=== PATIENT | female | born 1960 | race Caucasian/White ===

== ENCOUNTER → 2021-11-10 | Outpatient (CLI) | payer MEDICARE, MEDICAID, SELFPAY ==
--- NOTE | 2021-11-10 16:10 | MRI_ITS ---
STUDY: MRI LUMBAR SPINE WITH AND WITHOUT CONTRAST REASON FOR EXAM: Female, 61 years old. Multiple Sclerosis TECHNIQUE: Standardized fat and water weighted pulse sequences were obtained in the sagittal and axial planes. IV 17 CC DOTAREM was administered for the contrast portion of the examination. COMPARISON: None FINDINGS: T12-L1: Normal endplates. Normal disc height, hydration and morphology. Normal bilateral facet joints. Normal central canal and bilateral lateral recesses. Normal bilateral intervertebral neural foramina. Normal lumbar lordosis. There is no substantial scoliosis. Normal conus medullaris that terminates at the L1-2: Normal endplates. Normal disc height, hydration and morphology. Normal bilateral facet joints. Normal central canal and bilateral lateral recesses. Normal bilateral intervertebral neural foramina. L2-3: Normal endplates. Normal disc height, hydration and morphology. Normal bilateral facet joints. Normal central canal and bilateral lateral recesses. Normal bilateral intervertebral neural foramina. L3-4: Normal endplates. Normal disc height, hydration and morphology. Normal bilateral facet joints. Normal central canal and bilateral lateral recesses. Normal bilateral intervertebral neural foramina. L4-5: Normal endplates. Normal disc height, hydration and morphology. Normal bilateral facet joints. Normal central canal and bilateral lateral recesses. Normal bilateral intervertebral neural foramina. L5-S1: Normal endplates. Posterior midline annular tear. Normal bilateral facet joints. Normal central canal and bilateral lateral recesses. Normal bilateral intervertebral neural foramina. Normal visualized sacral ala. Normal visualized paraspinous soft tissue structures. MRI/Spine Lumbar W/WO Contrast IMPRESSION: Degenerative disc disease at L5-S1, otherwise normal enhanced and unenhanced MR examination of the lumbar spine. Electronically Signed: Ellie Estevez MD at 7:34 EDT ,
[2021-11-10 16:25] LABS: CREATININE FINGERSTICK 1.7 mg/dL (0.55-1.02)
--- NOTE | 2021-11-10 16:56 | MRI_ITS ---
STUDY: MRI BRAIN WITH AND WITHOUT CONTRAST REASON FOR EXAM: Female, 61 years old. Multiple Sclerosis TECHNIQUE: Standardized multiplanar fat and water weighted pulse sequences were obtained. IV 17CC DOTAREM was administered for the contrast portion of the examination. COMPARISON: None. FINDINGS: Normal size of the ventricles and extra-axial spaces for the patient''s age. Normal white matter tracts of the supratentorial brain. There are multiple small white matter increased T2 signal lesions are consistent with demyelinating plagues of the supratentorial brain. None of these lesions demonstrate abnormal enhancement after contrast administration. Normal bilateral basal ganglia. Normal thalami. There is no extra-axial fluid accumulation. Normal flow voids within the major intracranial circulation suggesting patency by spin echo criteria. Normal venous enhancement. There is no enhancing intra-axial or extra-axial abnormality. Normal sella turcica, pituitary gland, infundibular stalk, optic chiasm and hypothalamus. Normal tectal plate and pineal gland. Normal midbrain, katelynn and medulla. Normal cerebellum. Normal basal cisterns. Normal bilateral temporal bones. Normal bilateral internal auditory canals. No demonstrated orbital abnormality, within the constraints of a routine brain study. Normal visualized paranasal sinuses. Normal calvarium and skull base. Normal visualized soft tissue structures. Normal visualized upper cervical spine. MRI/Brain W/WO Contrast IMPRESSION: There are multiple small white matter increased T2 signal lesions are consistent with demyelinating plagues of the supratentorial brain. None of these lesions demonstrate abnormal enhancement after contrast administration. Electronically Signed: Ellie Estevez MD at 8:16 EDT ,
--- NOTE | 2021-11-10 17:39 | MRI_ITS ---
STUDY: MRI CERVICAL SPINE WITH AND WITHOUT CONTRAST REASON FOR EXAM: Female, 61 years old. Multiple Sclerosis TECHNIQUE: Standardized fat and water weighted pulse sequences were obtained in the sagittal and axial following administration of IV 17 CC DOTAREM. COMPARISON: None FINDINGS: Normal foramen magnum and brainstem-cervical cord junction. Normal craniovertebral junction. Normal anterior atlantoaxial articulation. Normal odontoid process. Normal cervical lordosis. Normal vertebral bodies and posterior osseous elements. C2-3: Normal endplates. Normal disc height, signal and morphology. Normal central canal and intervertebral neural foramina. C3-4: Normal endplates. Normal disc height, signal and morphology. Normal central canal and intervertebral neural foramina. C4-5, C5-6, C6-7: Endplate spondylosis. Central and paracentral disc bulge. Degenerative changes of the bilateral facet joints and uncovertebral joints. Moderate narrowing of the central canal and severe narrowing the bilateral intervertebral neural foramina. C7-T1: Normal endplates. Normal disc height, signal and morphology. Normal central canal and intervertebral neural foramina. Ill-defined high T2 signal lesions are noted in the cervical spine cord at C4-5, C6, C7 consistent with demyelinating lesions. None of these lesions show enhancement after contrast administration. Normal visualized soft tissue structures. MRI/Spine Cervical W/WO Contrast IMPRESSION: Multilevel degenerative changes, as described above. Ill-defined high T2 signal lesions are noted in the cervical spine cord at C4-5, C6, C7 consistent with demyelinating lesions. None of these lesions show enhancement after contrast administration. Electronically Signed: Ellie Estevez MD at 7:49 EDT ,
--- NOTE | 2021-11-10 18:19 | MRI_ITS ---
STUDY: MRI THORACIC SPINE WITH AND WITHOUT CONTRAST REASON FOR EXAM: Female, 61 years old. Multiple Sclerosis TECHNIQUE: IV 17Cc DOTAREM was administered for the contrast portion of the examination. COMPARISON: None. FINDINGS: Normal kyphosis of the thoracic spine. There is no substantial scoliosis. T1-2, T2-3, T3-4, T4-5, T5-6, T6-7, T7-8, T8-9, T9-10, T10-11, T11-12: Normal endplates. Normal disc hydration, heights and morphology of the corresponding intervertebral discs. Normal central canal and intervertebral neural foramina at the corresponding levels. Multiple high T2 signal lesions are seen in the upper and mid thoracic spine cord with ill-defined abnormal enhancement after contrast administration suggesting active demyelination. Normal conus medullaris that terminates at L1. The soft tissue structures are unremarkable. There is no enhancing abnormality. MRI/Spine Thoracic W/WO Contrast IMPRESSION: Multiple high T2 signal lesions are seen in the upper and mid thoracic spinal cord with ill-defined abnormal enhancement after contrast administration suggesting active demyelination. Electronically Signed: Ellie Estevez MD at 7:43 EDT ,
== END | disposition home or self-care (01) ==
LOC: MRI 15:21
PROVIDERS: Visit Provider Psychiatry & Neurology Neurology
DX: G35 Multiple sclerosis (principal)
CPT/HCPCS: 70553; 72156; 72157; 72158; A9575

== ENCOUNTER 2022-06-03 16:46 | Inpatient (IN) | payer MEDICARE, MEDICAID, SELFPAY ==
--- NOTE | 2022-06-03 16:52 | HP.PCM_ITS ---
HPI - General General Date of Admission: 06/03/22 Date of Service: 06/03/22 Chief Complaint: Nausea x 3 days. HPI Narrative The patient is a 61 y/o F w/ PMHx: Allergic rhinitis, Chronic anemia/AOCD/Fe deficiency anemia, Multiple sclerosis with near bedbound wheelchair status with chronic right foot drop and chronic neuropathic pain with chronic also ataxia following with Byron Flower previously in neurology, Mediastinal (Thymic) Large B-cell Lymphoma, Depression and Anxiety, GERD, Hypothyroidism, Hx Pelvic mass (aggressive large B cell lymphoma) w/ diagnostic laparoscopy followed by open loop transverse colostomy and loop ileostomy creation 2017 complicated by SBO requiring ex lap with REKHA, CKD stage IIIb (04/03/2022 BUN/creat 29/1.82) who presents to the [facility] ED on 06/03/22 with history of ongoing nausea x 3 days at the SNF with no associated emesis or abdominal pain and no fever or chills prompting SNF to transition to the ED for evaluation with upon initial ED arrival patient with initial BP noted 80/60 with pulse initially 125. Following ED evaluation and work-up with hydration vital signs notably improved. Additional work-up in the outside facility included: VS: BP 80/60-->96/70, HR 125-->102, 95-97% on RA, RR 16-18, T 97.7 CT A/P: atrophic left kidney with no evidence of hydronephrosis, (R kidney) ileostomy and colostomy appear appropriate, no bowel obstruction, evidence IVCF in place. Medications: 1L NS-> now on 2nd L, 4.45 mg IV Zosyn IV CMP with sodium 131, potassium 3.3, chloride 89, CO2 18.9, glucose 137, BUN/creatinine 44/5.38, AST/ALT 42/56, alk phos 147, calcium 11.1, total protein 11.5, albumin 5.5, T. bili 0.7, lipase 302, lactate 1.9, CBC with WBC 8.6, hemoglobin 17.1, MCV 92, platelet 419 without marked shift, urinalysis with cloudy appearing urine, pH 8, protein 100, glucose normal, ketone negative, bilirubin negative, blood 50, urobilinogen normal, specific gravity 1.015, nitrite negative, leukocyte Estrace 500 with greater than 50 urine WBCs, 0-5 urine RBCs with 4+ urine bacteria, UCx pending, Bld Cx x 2. [facility] feeling improved from her previous initial presentation to the outside facility ED. She notes that following fluids and medications she is currently not nauseated. Did discuss upfront that there was no immediate concerns for need for dialysis and she immediately noted that she had felt this was the case prior. 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 09/29/21 [History Last Taken Unknown] cyanocobalamin (vitamin B-12) 1,000 mcg capsule 1,000 mcg PO DAILY . 09/29/21 [History Last Taken Unknown] ferrous sulfate 325 mg (65 mg iron) tablet 325 mg PO DAILY . 09/29/21 [History Last Taken Unknown] fludrocortisone 0.1 mg tablet 0.1 mg PO DAILY . 09/29/21 [History Last Taken Unknown] folic acid 1 mg tablet 1 mg PO DAILY . 09/29/21 [History Last Taken Unknown] hydrocodone-acetaminophen 5-325mg 5mg-325mg 1 tab PO BID PRN . 09/29/21 [History Last Taken Unknown] levothyroxine 112 mcg capsule 112 mcg PO DAILY hypothyroidism 09/29/21 [History Last Taken Unknown] loperamide 2 mg capsule (Imodium A-D) 2 mg PO Q6H PRN . 09/29/21 [History Last Taken Unknown] midodrine 10 mg tablet 10 mg PO TID . 09/29/21 [History Last Taken Unknown] pantoprazole 40 mg tablet,delayed release 40 mg PO DAILY . 09/29/21 [History Last Taken Unknown] sodium chloride 0.9 % 100 ea continuous IV infusion .Q24 . 09/29/21 [History Last Taken Unknown] cholecalciferol (vitamin D3) 25 mcg (1,000 unit) capsule 25 mcg PO DAILY . 11/25/21 [History Last Taken Unknown] duloxetine 30 mg capsule,delayed release 60 mg PO BID . 11/25/21 [History Last Taken Unknown] magnesium oxide 400 mg (241.3 mg magnesium) tablet (MagOx) 400 mg PO BID . 11/25/21 [History Last Taken Unknown] fluticasone furoate 27.5 mcg/actuation nasal spray,suspension 2 spray intranasal DAILY . 06/03/22 [History Last Taken Unknown] montelukast 10 mg tablet 10 mg PO QHS allergies 06/03/22 [History Last Taken Unknown] simvastatin 20 mg tablet 20 mg PO QHS 06/03/22 [History Last Taken Unknown] Allergy/AdvReac Type Severity Reaction Status Date / Time cat dander Allergy Unknown Unknown Verified 11/25/21 09:23 granisetron [From Kytril] Allergy Unknown Unknown Verified 11/25/21 09:23 mushroom Allergy Unknown Unknown Verified 11/25/21 09:23 Seasonal Allergies: Uncoded Allergy unknown Verified 11/25/21 09:23 birds Allergy Unknown Unknown Uncoded 11/25/21 09:23 SSRIs Allergy Unknown Unknown Uncoded 11/25/21 09:23 Family History (Updated 06/03/22 @ 15:[address] Patricia Delarosa MD) Father CAD (coronary artery disease) Heart disease Hypertension Mother Breast cancer Surgical History (Updated 06/03/22 @ 15:[address] Patricia Delarosa MD) History of colostomy History of exploratory laparotomy History of ileostomy History of nephrostomy History of total left knee replacement (TKR) History of ureter stent Social History (Updated 06/03/22 @ 15:[address] Patricia Delarosa MD) housing: senior care Smoking Status: Never smoker Electronic Cigarette Use: not used alcohol intake: never substance use type: does not use ROS ROS Narrative Admission Review of Systems: CONSTITUTIONAL: No weight loss, fever, chills, + weakness or fatigue. HEENT: Eyes: No visual loss, blurred vision, double vision or yellow sclerae. Ears, Nose, Throat: No hearing loss, sneezing, congestion, runny nose or sore throat. SKIN: No rash or itching, lesions, wounds. CARDIOVASCULAR: No chest pain, chest pressure or chest discomfort, palpitations, edema, orthopnea, syncopal events. RESPIRATORY: No shortness of breath, cough or sputum, wheezing, hemoptysis. GASTROINTESTINAL: + anorexia, nausea, s/p colosctomy status. No vomiting, diarrhea, abdominal pain, melena, BRBPR. GENITOURINARY: + Chronic ileostomy, chronic saavedra, turpid appearing urine. No urgency or retention. NEUROLOGICAL: + Chronic debility with chronic ataxia, wheelchair/bedbound status with MS, chronic foot drop, No headache, dizziness, syncope, change in bowel or bladder control, seizure. MUSCULOSKELETAL: + muscle, back pain, joint pain or stiffness. HEMATOLOGIC: + anemia, bleeding or bruising. LYMPHATICS: No enlarged nodes. No history of splenectomy. PSYCHIATRIC: + history of depression or anxiety. ENDOCRINOLOGIC: No reports of sweating, cold or heat intolerance. No polyuria or polydipsia. ALLERGIES: + history of rhinitis. Physical Exam Narrative Physical Examination: General: Awake, alert, oriented to self, place and recent events, cooperative, seated upright in the bed, very talkative, notes feeling improved since initial outside facility presentation. Skin: Normal color, normal turgor, no icterus, no cyanosis except occasional staged ecchymoses, abrasion, mild stasis changes. HEENT: AT/NC, EOMI, PERRLA, mildly dry MM, no carotid bruits or JVD noted. Lungs: Mildly diminished, greater bases, proper effort, no rales, ronchi or wheezing. Heart: Currently regular rate and rhythm; no gallop, rub audible. Abdomen: Soft, NTTP, no obvious distention but ileostomy and colostomy make this assessment difficult, output appears appropriate, mildly hyperactive BS, no obvious HSM but again habitus and ostomies make evaluation difficult. Extremities: No cyanosis, no clubbing, mild chronic peripheral edema, underlying MS with significant debilities and chronic weakness with chronic left foot drop Neurological: Patient awake, alert, oriented as noted, cognitive function intact; pupils equally reactive to light and accommodation, cranial nerves grossly normal, patient with significant chronic debility with underlying MS, strength accordingly especially given acute presentation severely global decreased. Psychiatric: Affect appears normal, very interactive, notes feeling a lot better than previously, no acute evidence of depressive or anxiety feelings. Assessment & Plan Assessment/Plan (1) UTI (urinary tract infection): PLAN: Plan The patient is a 61 y/o F w/ PMHx: Allergic rhinitis, Chronic anemia/AOCD/Fe deficiency anemia, Multiple Sclerosis, Mediastinal (Thymic) Large B-cell Lymphoma s/p colostomy and loop ileostomy creation 2017 , Depression and Anxiety, GERD, Hypothyroidism, CKD stage IIIb (04/03/2022 BUN/creat 29/1.82) who presents to [facility] ED on 06/03/22 with history of ongoing nausea x 3 days at the SNF with no associated emesis or abdominal pain and no fever or chills prompting SNF to transition to the ED for evaluation w/ transition to [facility] on 06/03/22 as direct given possible Nephrology evaluation. #1. Acute Complicated UTI associated with Chronic Ileostomy-R Kidney w/ Hx with Chronic Saavedra Catheter: Will admit to PCU, UA upon ED evaluation remarkable, pending UCx at [facility] ED that will need to be followed as well as Bld Cx x 2, admission CBC w/ WBC not marked elevated and no marked L shift or fever, will continue IVFs, monitor I/Os, continue IV Zosyn as unable to find prior sensitivities to be cautious w/ transition as able pending sensitivities and speciation. #2. TORI on CKD stage IIIb: Suspected secondary to acute complicated UTI. Admission BUN/Cr 44/5.38, prior baseline creatinine noted to be 1.8-1.9. Will hydrate, hold nephrotoxic medications and repeat chemistry in AM, continue treatment acute infection as noted, CT A/P with no evidence of any recurrent hydronephrosis or renal/ureteral acute finding, obtain FeNa assessment. Patient from review of [facility] records prior Hx BL hydronephrosis, s/p nephrostomy tube since been removed and ureteral stent placement 04/2018, exchanged 09/04/18 w/ complex citrobacter UTI/pyelonephritis hx w/ as noted underlying CKD followed by Dr. Baker. If renal function not improving low threshold to involve local Nephrology. #3. 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 daily and midodrine 10 mg p.o. 3 times daily, continue as noted also IVFs, fall precautions. #4. Multiple sclerosis: Patient with near bedbound wheelchair status with chronic left foot drop and chronic neuropathic pain with chronic also ataxia following with Byron Flower previously in neurology, maintain on fall precautions. PT/OT/CM consultation for discharge planning. #5. Hx Mediastinal (Thymic) Large B-cell Lymphoma: Currently per report considered in remission. Patient w/ noted initial pelvic mass (aggressive large B cell lymphoma) w/ diagnostic laparoscopy followed by open loop transverse colostomy and loop ileostomy creation 2018 complicated by SBO requiring ex lap with REKHA, associated history of tumor lysis syndrome, encourage continued outpat ient follow-up and evaluation as previously arranged. #6. Hyperlipidemia: We will continue patient home simvastatin regimen. #7. Chronic neuropathic pain: We will continue patient home Cymbalta regimen. #8. Hypothyroidism: We will continue patient home regimen. #9. GERD: We will continue patient home omeprazole regimen. #10. Allergic rhinitis: We will continue patient home montelukast and fluticasone regimen. #11. Chronic anemia/AOCD/Fe deficiency anemia: OSH ED Hgb 17.1, will continue to hydrate given presentation and repeat CBC in AM which should reflex patient true baseline Hgb, continue Fe supplementation. #12. DVT prophylaxis: Heparin. #13. CODE status: Full Code. Admission Evaluation Time spent evaluating chart, patient history, patient evaluation, care planning and discussion with specialists: 75 minutes. Charges/Coding Visit Charges Inpatient E&M: 41793 Init Hosp L3
[2022-06-03 17:23] VITALS: BMI 33.0
[2022-06-03 17:31] VITALS: BP 113/74; PULSE 87; RESP 18; TEMP 36.7; O2SAT 97
[2022-06-03] MEDS: 0.9% Normal Saline 1,000 ML 100 ML IV (17:55)
[2022-06-03 18:03] LABS: Magnesium 1.7 mg/dL (1.6-2.6); Phosphorus 6.1 mg/dL (2.5-4.9)
[2022-06-03] MEDS: Menthol/Lanolin/Calamine/Znox 113 GM Tube 1 APPLIC TOPICAL ×2 (18:09→23:19)
[2022-06-03 20:34] VITALS: BP 107/62; PULSE 81; RESP 18; TEMP 36.6; O2SAT 99
[2022-06-03] MEDS: HYDROcodone Bitartrate/Apap 5/325 Tablet PO (20:56)
[2022-06-03 21:45] LABS: Urine Sodium 12 mmol/L (Not Establ.)
[2022-06-03 23:12] VITALS: BP 113/98; PULSE 86; RESP 18; TEMP 36.7; O2SAT 98
[2022-06-03] MEDS: Montelukast 10 MG Tablet PO (23:14)
[2022-06-03] MEDS: Magnesium Chloride 64 MG Delay Rel.Tablet 128 MG PO (23:14)
[2022-06-03] MEDS: Atorvastatin Calcium 10 MG Tablet PO (23:15)
[2022-06-03] MEDS: DULoxetine Hcl 30 MG Capsule 60 MG PO (23:53)
[2022-06-04 03:23] VITALS: O2SAT 98
[2022-06-04 05:18] VITALS: BP 105/61; PULSE 81; RESP 18; TEMP 36.4; O2SAT 98
[2022-06-04] MEDS: 0.9% Normal Saline 1,000 ML 100 ML IV ×2 (05:21→15:24)
[2022-06-04] MEDS: Levothyroxine 112 MCG Tablet PO (05:21)
[2022-06-04 05:39] LABS: Absolute Lymphocyte Count 1.05 X10^3/uL (0.83-4.51); Absolute Neutrophil Count 5.2 X10^3/uL (2.0-7.7); Basophil# 0.03 X10^3/uL; Basophil% 0.4 % (0-1); Eosinophils% 3.9 % (0-5); Hematocrit 41.4 % (37-47); Hemoglobin 12.9 g/dL (12.0-15.0); Lymphocyte # 1.05 X10^3/ul (0.83-4.51); Lymphocyte % 13.7 % (19-41); Mean Corp Hgb Conc 31.2 g/dL (32-36); Mean Corpuscular Hgb 29.7 pg (27.0-32.0); Mean Corpuscular Volume 95.2 fL (81-99); Mean Platelet Vol. 9.2 fl (6.2-12.0); Monocyte# 1.09 X10^3/uL; Monocyte% 14.2 % (0-10); NRBC Flagged by Analyzer 0 % (0-5); Neutrophil # 5.18 X10^3/uL (2.7-7.7); Neutrophil % 67.5 % (47-70); Platelet Count 269 K/mm3 (150-450); RBC Distribution Width CV 15.4 % (11.6-14.6); RBC Distribution Width SD 54.3 fl (35.1-43.9); Red Blood Count 4.35 M/mm3 (4.2-5.4); White Blood Count 7.7 K/mm3 (4.4-11.0)
[2022-06-04 06:00] VITALS: BMI 32.4
[2022-06-04 06:28] LABS: ALB/GLOB Ratio 0.7 RATIO (0.9-2.4); AST(SGOT) 40 U/L (15-37); Alanine Aminotransfer ALT/SGPT 38 U/L (13-56); Albumin, Serum 3.1 g/dL (3.2-5.0); Alkaline Phosphatase 84 U/L (45-117); Anion Gap 10 (5-15); BUN 45 mg/dL (7-18); BUN/Creat Ratio 9.8 RATIO (10-20); Calcium,Total 8.2 mg/dL (8.5-10.1); Chloride 112 mmol/L (98-107); Creatinine, Serum 4.59 mg/dL (0.55-1.02); EST Glomerular Filtration Rate 10 mL/min (>60); Est Glom Filt Rate - Afr Amer 12 mL/min (>60); Estimated Creatinine Clearance 11.29 ml/min; Globulin 4.5 g/dL (2.2-4.2); Glucose 96 mg/dL (74-106); Potassium 3.4 mmol/L (3.5-5.1); Protein, Total 7.6 g/dL (6.4-8.2); Sodium Level 132 mmol/L (136-145)
[2022-06-04 07:17] VITALS: O2SAT 95
[2022-06-04 09:07] VITALS: BP 132/74; PULSE 93; RESP 16; TEMP 36.9; O2SAT 98
[2022-06-04] MEDS: HYDROcodone Bitartrate/Apap 5/325 Tablet PO ×2 (09:10→21:32)
[2022-06-04] MEDS: Menthol/Lanolin/Calamine/Znox 113 GM Tube 1 APPLIC TOPICAL ×4 (09:11→21:22)
[2022-06-04] MEDS: Folic Acid 1 MG Tablet PO (09:13)
[2022-06-04] MEDS: Magnesium Chloride 64 MG Delay Rel.Tablet 128 MG PO ×2 (09:13→21:20)
[2022-06-04] MEDS: DULoxetine Hcl 30 MG Capsule 60 MG PO ×2 (09:14→21:20)
[2022-06-04] MEDS: Heparin Injection (Vial) 5,000 UNIT/ML VIAL 5000 UNIT SC ×2 (09:14→21:23)
[2022-06-04] MEDS: Ferrous Sulfate 325 MG Tablet PO (09:14)
[2022-06-04] MEDS: Cholecalciferol (VIT D3) 25 MCG TABLET (1,000 UNITS) PO (09:15)
[2022-06-04] MEDS: Fludrocortisone Acetate 0.1 MG Tablet PO (09:15)
[2022-06-04] MEDS: Cyanocobalamin 500 MCG Tablet 1000 MCG PO (09:15)
[2022-06-04] MEDS: Pantoprazole Sodium 40 MG Tablet PO (09:16)
--- NOTE | 2022-06-04 15:23 | PN_ITS ---
Subjective Subjective Patient seen and examined. She has no complaints and says she feels much better. Her nausea has improved. Review of systems otherwise negative. She has remained hemodynamically stable. Objective Data Objective Data Vital Signs: Vital Signs Temp Pulse Resp BP Pulse Ox O2 Del Method 98.4 F 93 16 132/74 H 98 Room Air 06/04/22 09:07 06/04/22 09:07 06/04/22 09:07 06/04/22 09:07 06/04/22 09:07 06/04/22 09:07 Oxygen Delivery Method Room Air Weight: 195 lb 1.745 oz Body Mass Index (BMI) 32.4 Intake & Output: Intake and Output for Last 24 Hours 06/02/22 06/03/22 06/04/22 23:59 23:59 23:59 Intake Total 430 / 430 780 / 780 Output Total 1275 / 1275 600 / 600 Balance -845 / -845 180 / 180 Lab / Micro Data Result Diagrams: 06/04/22 04:53 06/04/22 04:53 Labs: Laboratory Results - last 24 hr 06/03/22 17:18: Phosphorus 6.1 H, Magnesium 1.7 06/03/22 21:00: Ur Random Sodium 12, Urine Creatinine 127.00 06/04/22 04:53: WBC 7.7, RBC 4.35, Hgb 12.9, Hct 41.4, MCV 95.2, MCH 29.7, MCHC 31.2 L, RDW Std Deviation 54.3 H, RDW Coeff of Randal 15.4 H, Plt Count 269, MPV 9.2, Immature Gran % (Auto) 0.300, Neut % (Auto) 67.5, Lymph % (Auto) 13.7 L, [place] % (Auto) 14.2 H, Eos % (Auto) 3.9, Baso % (Auto) 0.4, Absolute Neuts (auto) 5.2, Absolute Lymphs (auto) 1.05, Nucleated RBC % 0 06/04/22 04:53: Sodium 132 L, Potassium 3.4 L, Chloride 112 H, Carbon Dioxide 10.0 L, Anion Gap 10, BUN 45 H, Creatinine 4.59 H, Estim Creat Clear Calc 11.29, Est GFR (MDRD) Af Amer 12 L, Est GFR (MDRD) Non-Af 10 L, BUN/Creatinine Ratio 9.8 L, Glucose 96, Calcium 8.2 L, Total Bilirubin 0.60, AST 40 H, ALT 38, Alkaline Phosphatase 84, Total Protein 7.6, Albumin 3.1 L, Globulin 4.5 H, Albumin/Globulin Ratio 0.7 L Physical Exam Const oriented x3 and no apparent distress General Appearance: cooperative HEENT normocephalic, head/scalp atraumatic, moist oral mucous membranes and oropharynx normal Eyes EOMs intact bilaterally Neck no lymphadenopathy, supple and no JVD Lymph Lymphatic: no lymphadenopathy noted, no lymphedema noted and lymphedema Resp normal respiratory effort, normal air movement and clear to auscultation bilaterally Cardio regular rate, regular rhythm, S1 normal heart sound, S2 normal heart sound and no murmurs GI normal to inspection, nondistended, normoactive bowel sounds, soft to palpation and non-tender GI Narrative: has colostomy and ileostomy bag in place Extremity normal capillary refill, no clubbing, cyanosis or edema and no calf tenderness Skin General Skin Exam: no breakdown Neuro CN's II-XII intact bilaterally, no focal motor deficits and no sensory deficits noted Motor Exam: strength 5/5 throughout Psych thought process normal Appearance: appropriate Assessment & Plan Assessment/Plan (1) UTI (urinary tract infection): PLAN: Plan #Acute complicated UTI * in setting Of chronic ileostomy with chronic [place] catheter * On IV Zosyn. Urine cultures ordered and pending. Blood cultures also ordered. * Encourage oral hydration * #TORI on CKD stage IIIb: * Creatinine was 5.38. * Creatinine has trended down slightly to 4.59 * In light of her complicated history, nephrology consulted. Hold nephrotoxic meds. CT of the abdomen and pelvis showed no evidence of hydronephrosis any acute urinary or ureteral findings. * Check Fe urea and Jovita. * #Non-anion gap metabolic acidosis: Bicarb is 10 with anion gap of 10. This likely due to TORI and CKD. Will start on oral bicarb #Hypokalemia: Potassium is 3.4. Replace and trend. #Hypotension: This appears to be chronic. On midodrine and fludrocortisone History of multiple sclerosis: Uses a wheelchair to get around. #Chronic left foot drop and chronic neuropathic pain. To follow-up with a neurologist on outpatient basis. For precautions. PT OT on board. #History large B-cell lymphoma: * In remission. * Has large mediastinal mass and also had an initial pelvic mass s/p diagnostic laparoscopy and open loop transverse colostomy and loop ileostomy in 2018. * #Hyperlipidemia: On statin #Chronic neuropathic pain: On Cymbalta #Hypothyroidism: On Synthroid #GERD: On PPI DVT prophylaxis: Heparin Total time spent on evaluation and management of patient, reviewing chart and specialist notes, discussing plan with patient, discussion with nursing and ancillary staff as well as documentation: 45 mins Charges/Coding Visit Charges Inpatient E&M: 26631 Subs Hosp L3
[2022-06-04 15:25] VITALS: BP 97/63; PULSE 79; RESP 14; TEMP 36.4; O2SAT 97
[2022-06-04] MEDS: Midodrine HCl 5 MG Tablet 10 MG PO ×2 (15:27→17:56)
--- NOTE | 2022-06-04 15:44 | PCM.PN.REN ---
Subjective Subjective consult noted, chart reviewed, full consult to follow -bp on lower side, continue with midodrine -d/c NS -urine sodium low, consistent with decrease EBV -start bicarb gtt until serum bicarb >20 -no immediate need for ETHNOARCHAEOLOGIST thanks, please call [phone] with any concerns Objective Data Objective Data Vital Signs: Vital Signs Temp Pulse Resp BP Pulse Ox O2 Del Method 97.5 F L 79 14 97/63 97 Room Air 06/04/22 15:25 06/04/22 15:25 06/04/22 15:25 06/04/22 15:25 06/04/22 15:25 06/04/22 15:25 Oxygen Delivery Method Room Air Weight: 88.5 kg Body Mass Index (BMI) 32.4 Intake & Output: Intake and Output for Last 24 Hours 06/02/22 06/03/22 06/04/22 23:59 23:59 23:59 Intake Total 430 / 430 2500 / 2500 Output Total 1275 / 1275 900 / 900 Balance -845 / -845 1600 / 1600 Lab / Micro Data Result Diagrams: 06/04/22 04:53 06/04/22 04:53 Labs: Laboratory Results - last 24 hr 06/03/22 17:18: Phosphorus 6.1 H, Magnesium 1.7 06/03/22 21:00: Ur Random Sodium 12, Urine Creatinine 127.00 06/04/22 04:53: WBC 7.7, RBC 4.35, Hgb 12.9, Hct 41.4, MCV 95.2, MCH 29.7, MCHC 31.2 L, RDW Std Deviation 54.3 H, RDW Coeff of Randal 15.4 H, Plt Count 269, MPV 9.2, Immature Gran % (Auto) 0.300, Neut % (Auto) 67.5, Lymph % (Auto) 13.7 L, [place] % (Auto) 14.2 H, Eos % (Auto) 3.9, Baso % (Auto) 0.4, Absolute Neuts (auto) 5.2, Absolute Lymphs (auto) 1.05, Nucleated RBC % 0 06/04/22 04:53: Sodium 132 L, Potassium 3.4 L, Chloride 112 H, Carbon Dioxide 10.0 L, Anion Gap 10, BUN 45 H, Creatinine 4.59 H, Estim Creat Clear Calc 11.29, Est GFR (MDRD) Af Amer 12 L, Est GFR (MDRD) Non-Af 10 L, BUN/Creatinine Ratio 9.8 L, Glucose 96, Calcium 8.2 L, Total Bilirubin 0.60, AST 40 H, ALT 38, Alkaline Phosphatase 84, Total Protein 7.6, Albumin 3.1 L, Globulin 4.5 H, Albumin/Globulin Ratio 0.7 L
[2022-06-04] MEDS: Atorvastatin Calcium 10 MG Tablet PO (21:21)
[2022-06-04] MEDS: Montelukast 10 MG Tablet PO (21:21)
[2022-06-04 23:16] VITALS: BP 94/60; PULSE 75; RESP 16; TEMP 36.7; O2SAT 98
[2022-06-05] VITALS (7 sets, daily range): BP systolic 97–115; BP diastolic 55–71; PULSE 71–77; RESP 16–18; TEMP 36.4–36.7; O2SAT 95–100; BMI 32.7
[2022-06-05] MEDS: Levothyroxine 112 MCG Tablet PO (05:32)
[2022-06-05 06:18] LABS: Absolute Lymphocyte Count 1.19 X10^3/uL (0.83-4.51); Absolute Neutrophil Count 4.7 X10^3/uL (2.0-7.7); Basophil# 0.02 X10^3/uL; Basophil% 0.3 % (0-1); Eosinophil# 0.25 X10^3/uL; Eosinophils% 3.5 % (0-5); Hematocrit 34.9 % (37-47); Hemoglobin 11.1 g/dL (12.0-15.0); Lymphocyte # 1.19 X10^3/ul (0.83-4.51); Lymphocyte % 16.8 % (19-41); Mean Corp Hgb Conc 31.8 g/dL (32-36); Mean Corpuscular Hgb 29.4 pg (27.0-32.0); Mean Corpuscular Volume 92.3 fL (81-99); Mean Platelet Vol. 9.6 fl (6.2-12.0); Monocyte# 0.86 X10^3/uL; Monocyte% 12.2 % (0-10); NRBC Flagged by Analyzer 0 % (0-5); Neutrophil # 4.73 X10^3/uL (2.7-7.7); Neutrophil % 66.9 % (47-70); Platelet Count 248 K/mm3 (150-450); RBC Distribution Width CV 15.3 % (11.6-14.6); RBC Distribution Width SD 51.8 fl (35.1-43.9); Red Blood Count 3.78 M/mm3 (4.2-5.4); White Blood Count 7.1 K/mm3 (4.4-11.0)
[2022-06-05 07:04] LABS: Anion Gap 5 (5-15); BUN 42 mg/dL (7-18); BUN/Creat Ratio 11.6 RATIO (10-20); Calcium,Total 7.7 mg/dL (8.5-10.1); Chloride 112 mmol/L (98-107); Creatinine, Serum 3.62 mg/dL (0.55-1.02); EST Glomerular Filtration Rate 14 mL/min (>60); Est Glom Filt Rate - Afr Amer 16 mL/min (>60); Estimated Creatinine Clearance 14.31 ml/min; Glucose 101 mg/dL (74-106); Potassium 2.7 mmol/L (3.5-5.1); Sodium Level 137 mmol/L (136-145)
--- NOTE | 2022-06-05 07:40 | CPS ---
Pt checked on this am for SMI. Pt was sleeping and SMI was held at this time.
--- NOTE | 2022-06-05 07:45 | PCM.PN.HOSP ---
Reason for Visit Reason for Visit: Diagnoses Urinary tract infection, site not specified (06/03/22) Subjective Subjective Feel much better than she had been, no abdominal pain, no other significant complaints at this time Objective Data Objective Data Vital Signs: Vital Signs Temp Pulse Resp BP Pulse Ox O2 Del Method 97.7 F L 77 16 101/55 L 100 Room Air 06/05/22 03:55 06/05/22 03:55 06/05/22 03:55 06/05/22 03:55 06/05/22 03:55 06/05/22 03:55 Oxygen Delivery Method Room Air Weight: 89.3 kg Body Mass Index (BMI) 32.7 Intake & Output: Intake and Output for Last 24 Hours 06/03/22 06/04/22 06/05/22 23:59 23:59 23:59 Intake Total 430 / 430 3175 / 3175 1071.67 / 1071.67 Output Total 1275 / 1275 1600 / 2400 1400 / 1400 Balance -845 / -845 1575 / 775 -328.33 / -328.33 Lab / Micro Data Result Diagrams: 06/05/22 05:10 06/05/22 05:10 Labs: Laboratory Results - last 24 hr 06/05/22 05:10: WBC 7.1, RBC 3.78 L, Hgb 11.1 L, Hct 34.9 L, MCV 92.3, MCH 29.4, MCHC 31.8 L, RDW Std Deviation 51.8 H, RDW Coeff of Randal 15.3 H, Plt Count 248, MPV 9.6, Immature Gran % (Auto) 0.300, Neut % (Auto) 66.9, Lymph % (Auto) 16.8 L, [place] % (Auto) 12.2 H, Eos % (Auto) 3.5, Baso % (Auto) 0.3, Absolute Neuts (auto) 4.7, Absolute Lymphs (auto) 1.19, Nucleated RBC % 0 06/05/22 05:10: Sodium 137, Potassium 2.7 L*, Chloride 112 H, Carbon Dioxide 20.0 L, Anion Gap 5, BUN 42 H, Creatinine 3.62 H, Estim Creat Clear Calc 14.31, Est GFR (MDRD) Af Amer 16 L, Est GFR (MDRD) Non-Af 14 L, BUN/Creatinine Ratio 11.6, Glucose 101, Calcium 7.7 L Physical Exam Narrative General: Alert, oriented, no apparent distress HEENT: Atraumatic, normocephalic Eyes: Anicteric, normal conjunctiva, extraocular movements grossly intact Neck: Supple Respiratory: Clear to auscultation bilaterally, normal respiratory effort Cardiovascular: Regular rate and rhythm GI: Soft, nontender, nondistended Extremities: No edema Musculoskeletal: Moving all extremities Neuro: No overt focal neurological deficits Skin: No rashes appreciated Psych: Cooperative Assessment & Plan Assessment/Plan (1) TORI (acute kidney injury): (2) Metabolic acidosis: (3) Hypokalemia: (4) UTI (urinary tract infection): PLAN: Plan #Acute complicated UTI -in setting Of chronic ileostomy with chronic Middleton catheter -On IV Zosyn.? Urine cultures ordered and pending.? Blood cultures also ordered. -Encourage oral hydration #TORI on CKDIIIb -Creatinine initially 5.38, continues to downtrend -CT abdomen pelvis with no hydronephrosis or acute findings -Nephrology consulted and remains on IV fluids, status post bicarb drip #hypokalemia -Cont to monitor and replace #Hypotension, appears to be chronic -Continue midodrine and fludrocortisone #hx MS -Uses wheelchair for mobility #Chronic left foot drop and chronic neuropathic pain.? -To follow-up with a neurologist on outpatient basis.? -PT OT on board #History large B-cell lymphoma: -In remission. -Has large mediastinal mass and also had an initial pelvic mass s/p diagnostic laparoscopy and open loop transverse colostomy and loop ileostomy in 2018. #DVT ppx: Heparin subcu Viry Schmitz MD Time spent in the patient's overall evaluation,decision-making process, review of diagnostic data, adjustment of management, discussion with other providers, nursing nursing and ancillary staff involved in patient's care documentation, 30 minutes Charges/Coding Visit Charges Inpatient E&M: [address] [facility] Hosp L2
[2022-06-05] MEDS: HYDROcodone Bitartrate/Apap 5/325 Tablet PO ×2 (08:33→21:51)
[2022-06-05] MEDS: Potassium Chloride Oral Tablet 20 MEQ 60 MEQ PO (08:34)
[2022-06-05] MEDS: Cholecalciferol (VIT D3) 25 MCG TABLET (1,000 UNITS) PO (08:37)
[2022-06-05] MEDS: Heparin Injection (Vial) 5,000 UNIT/ML VIAL 5000 UNIT SC ×2 (08:37→21:53)
[2022-06-05] MEDS: Cyanocobalamin 500 MCG Tablet 1000 MCG PO (08:37)
[2022-06-05] MEDS: Midodrine HCl 5 MG Tablet 10 MG PO ×3 (08:38→16:31)
[2022-06-05] MEDS: Ferrous Sulfate 325 MG Tablet PO (08:38)
[2022-06-05] MEDS: Magnesium Chloride 64 MG Delay Rel.Tablet 128 MG PO ×2 (08:38→21:40)
[2022-06-05] MEDS: DULoxetine Hcl 30 MG Capsule 60 MG PO ×2 (08:38→21:39)
[2022-06-05] MEDS: Pantoprazole Sodium 40 MG Tablet PO (08:38)
[2022-06-05] MEDS: Fludrocortisone Acetate 0.1 MG Tablet PO (08:38)
[2022-06-05] MEDS: Folic Acid 1 MG Tablet PO (08:38)
[2022-06-05] MEDS: Menthol/Lanolin/Calamine/Znox 113 GM Tube 1 APPLIC TOPICAL ×4 (08:41→21:55)
--- NOTE | 2022-06-05 10:11 | CON.PCM.RE_ITS ---
Documented by User: PATRICIA Palmer 06/05/22 10:43 Assessment & Plan Assessment/Plan (1) TORI (acute kidney injury): (2) Metabolic acidosis: (3) Hypokalemia: (4) UTI (urinary tract infection): PLAN: Plan This is a pleasant 61-year-old female with past medical history significant for multiple sclerosis, history of large B-cell lymphoma, history of pelvic mass with diagnostic laparoscopy followed by open loop transverse colostomy and loop ileostomy creation 2017 who was transferred from outside ER for TORI, complicated UTI, hypotension. Nephrology consulted for acute kidney injury. In [place] ER creatinine 5.38mg/dL. Unknown baseline creatinine but per H&P patient was noted to have serum Creatinine of 1.82 mg/dL from labs 04/03/2022. TORI likely secondary to significant volume depletion with nausea, vomiting and diarrhea, hypotension and UTI. Urine sodium yesterday 12. Overall renal function is improving. Yesterday patient's creatinine was 4.59 mg/dL and today her creatinine is 3.62 mg/dL. Patient has been on IV fluids, bicarb drip. Bicarb has improved to 20.0 today. Likely metabolic acidosis from TORI and diarrhea. Potassium low, replacement has been given today. Will stop bicarb drip and start LR. Will check mag level in am. At this time there is no acute indication for [employer] as renal function is improving. Patient is nonoliguric. Appears near euvolemic at this time. Blood pressures have improved, continue on midodrine and florinef (patient states has been taking these medications for some time now for history of hypotension). Patient is on IV antibiotics, Zosyn and urine cx pending. Labs ordered for the morning. Further orders forthcoming as hospitalization evolves. Thank you for allowing us to participate in the care of Ms. Back. HPI Consult Data Date of Consult: 06/05/22 HPI Narrative HPI Narrative: MARIETTA BACK, is a 61 F with past nuchal history significant for multiple sclerosis, hypotension on midodrine, history of mediastinal large B-cell lymphoma, depression and anxiety, hypothyroidism, who presented to outside emergency room for evaluation of nausea, vomiting, diarrhea for few days. In the emergency room patient was noted to have creatinine 5.38, sodium 131, potassium 3.3, urine showing large bacteria, therefore she was transferred to [facility] for further evaluation and treatment. We were consulted for renal insufficiency. Patient reports she is feeling better, denies any nausea or vomiting now. Denies any diarrhea. Patient states appetite has improved. In outside emergency room creatinine was 5.38, CO2 18. Yesterday bicarb 10, creatinine 4.59, potassium 3.4 and patient was started on bicarb drip, today creatinine has improved to 3.62, bicarb 20. 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 09/29/21 [History Last Taken Unknown] cyanocobalamin (vitamin B-12) 1,000 mcg capsule 1,000 mcg PO DAILY . 09/29/21 [History Last Taken Unknown] ferrous sulfate 325 mg (65 mg iron) tablet 325 mg PO DAILY . 09/29/21 [History Last Taken Unknown] fludrocortisone 0.1 mg tablet 0.1 mg PO DAILY . 09/29/21 [History Last Taken Unknown] folic acid 1 mg tablet 1 mg PO DAILY . 09/29/21 [History Last Taken Unknown] hydrocodone-acetaminophen 5-325mg 5mg-325mg 1 tab PO BID PRN . 09/29/21 [History Last Taken Unknown] levothyroxine 112 mcg capsule 112 mcg PO DAILY hypothyroidism 09/29/21 [History Last Taken Unknown] loperamide 2 mg capsule (Imodium A-D) 2 mg PO Q6H PRN . 09/29/21 [History Last Taken Unknown] midodrine 10 mg tablet 10 mg PO TID . 09/29/21 [History Last Taken Unknown] pantoprazole 40 mg tablet,delayed release 40 mg PO DAILY . 09/29/21 [History L ast Taken Unknown] sodium chloride 0.9 % 100 ea continuous IV infusion .Q24 . 09/29/21 [History Last Taken Unknown] cholecalciferol (vitamin D3) 25 mcg (1,000 unit) capsule 25 mcg PO DAILY . 11/25/21 [History Last Taken Unknown] duloxetine 30 mg capsule,delayed release 60 mg PO BID . 11/25/21 [History Last Taken Unknown] magnesium oxide 400 mg (241.3 mg magnesium) tablet (MagOx) 400 mg PO BID . [History Last Taken Unknown] fluticasone furoate 27.5 mcg/actuation nasal spray,suspension 2 spray intranasal DAILY . 06/03/22 [History Last Taken Unknown] montelukast 10 mg tablet 10 mg PO QHS allergies 06/03/22 [History Last Taken Unknown] simvastatin 20 mg tablet 20 mg PO QHS 06/03/22 [History Last Taken Unknown] Allergy/AdvReac Type Severity Reaction Status Date / Time cat dander Allergy Unknown Unknown Verified 11/25/21 09:23 granisetron [From Kytril] Allergy Unknown Unknown Verified 11/25/21 09:23 mushroom Allergy Unknown Unknown Verified 11/25/21 09:23 Seasonal Allergies: Uncoded Allergy unknown Verified 11/25/21 09:23 birds Allergy Unknown Unknown Uncoded 11/25/21 09:23 SSRIs Allergy Unknown Unknown Uncoded 11/25/21 09:23 Family History (Updated 06/03/22 @ 15:[address] Patricia Delarosa MD) Father CAD (coronary artery disease) Heart disease Hypertension Mother Breast cancer Surgical History (Updated 06/03/22 @ 15:[address] Patricia Delarosa MD) History of colostomy History of exploratory laparotomy History of ileostomy History of nephrostomy History of total left knee replacement (TKR) History of ureter stent Social History (Updated 06/03/22 @ 15:[address] Patricia Delarosa MD) housing: longterm Smoking Status: Never smoker Electronic Cigarette Use: not used alcohol intake: never substance use type: does not use ROS ROS Narrative As in HPI Physical Exam Narrative Alert and oriented x3, no apparent distress S1, S2, RRR Lung sounds clear anteriorly and posteriorly. No wheezes, rhonchi or rales noted Abdomen soft, nontender No edema Middleton catheter with clear yellow urine, positive sediment noted in tubing Lab / Micro Data Result Diagrams: 06/05/22 05:10 06/05/22 05:10 Labs: Laboratory Results - last 24 hr 06/05/22 05:10: WBC 7.1, RBC 3.78 L, Hgb 11.1 L, Hct 34.9 L, MCV 92.3, MCH 29.4, MCHC 31.8 L, RDW Std Deviation 51.8 H, RDW Coeff of Randal 15.3 H, Plt Count 248, MPV 9.6, Immature Gran % (Auto) 0.300, Neut % (Auto) 66.9, Lymph % (Auto) 16.8 L , [place] % (Auto) 12.2 H, Eos % (Auto) 3.5, Baso % (Auto) 0.3, Absolute Neuts (auto) 4.7, Absolute Lymphs (auto) 1.19, Nucleated RBC % 0 06/05/22 05:10: Sodium 137, Potassium 2.7 L*, Chloride 112 H, Carbon Dioxide 20.0 L, Anion Gap 5, BUN 42 H, Creatinine 3.62 H, Estim Creat Clear Calc 14.31, Est GFR (MDRD) Af Amer 16 L, Est GFR (MDRD) Non-Af 14 L, BUN/Creatinine Ratio 11.6, Glucose 101, Calcium 7.7 L Documented by User: Dr. Samantha Castelan MD 06/05/22 11:06 Assessment & Plan Assessment/Plan (1) TORI (acute kidney injury): (2) Metabolic acidosis: (3) Hypokalemia: (4) UTI (urinary tract infection): PLAN: Plan This is a pleasant 61-year-old female with past medical history significant for multiple sclerosis, history of large B-cell lymphoma, history of pelvic mass with diagnostic laparoscopy followed by open loop transverse colostomy and loop ileostomy creation 2017 who was transferred from outside ER for TORI, complicated UTI, hypotension. Nephrology consulted for acute kidney injury. In [place] ER creatinine 5.38mg/dL. Unknown baseline creatinine but per H&P patient was noted to have serum Creatinine of 1.82 mg/dL from labs 04/03/2022. TORI likely secondary to significant volume depletion with nausea, vomiting and diarrhea, hypotension and UTI. Urine sodium yesterday 12. Overall renal function is improving. Yesterday patient's creatinine was 4.59 mg/dL and today her creatinine is 3.62 mg/dL. Patient has been on IV fluids, bicarb drip. Bicarb has improved to 20.0 today. Likely metabolic acidosis from TORI and diarrhea. Potassium low, replacement has been given today. Will stop bicarb drip and start LR. Will check mag level in am. At this time there is no acute indication for [employer] as renal function is improving. Patient is nonoliguric. Appears near euvolemic at this time. Blood pressures have improved, continue on midodrine and florinef (patient states has been taking these medications for some time now for history of hypotension). Patient is on IV antibiotics, Zosyn and urine cx pending. Labs ordered for the morning. Further orders forthcoming as hospitalization evolves. Thank you for allowing us to participate in the care of Ms. Back. Nephrology attending addendum: The patient was seen and examined. I agree with CHOPPER FEEDER's note as documented above. Suspect TORI is secondary to volume depletion causing prerenal azotemia. Agree with volume expansion. We will change IV fluid from sodium bicarbonate infusion to LR today since bicarbonate level is now 20 mmol/L. Replace potassium deficit. Recheck renal function potassium, and magnesium level tomorrow. Nephrology plan discussed with Dr. Schmitz. 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 09/29/21 [History Last Taken Unknown] cyanocobalamin (vitamin B-12) 1,000 mcg capsule 1,000 mcg PO DAILY . 09/29/21 [History Last Taken Unknown] ferrous sulfate 325 mg (65 mg iron) tablet 325 mg PO DAILY . 09/29/21 [History Last Taken Unknown] fludrocortisone 0.1 mg tablet 0.1 mg PO DAILY . 09/29/21 [History Last Taken Unknown] folic acid 1 mg tablet 1 mg PO DAILY . 09/29/21 [History Last Taken Unknown] hydrocodone-acetaminophen 5-325mg 5mg-325mg 1 tab PO BID PRN . 09/29/21 [History Last Taken Unknown] levothyroxine 112 mcg capsule 112 mcg PO DAILY hypothyroidism 09/29/21 [History Last Taken Unknown] loperamide 2 mg capsule (Imodium A-D) 2 mg PO Q6H PRN . 09/29/21 [History Last Taken Unknown] midodrine 10 mg tablet 10 mg PO TID . 09/29/21 [History Last Taken Unknown] pantoprazole 40 mg tablet,delayed release 40 mg PO DAILY . 09/29/21 [History Last Taken Unknown] sodium chloride 0.9 % 100 ea continuous IV infusion .Q24 . 09/29/21 [History Last Taken Unknown] cholecalciferol (vitamin D3) 25 mcg (1,000 unit) capsule 25 mcg PO DAILY . 11/25/21 [History Last Taken Unknown] duloxetine 30 mg capsule,delayed release 60 mg PO BID . 11/25/21 [History Last Taken Unknown] magnesium oxide 400 mg (241.3 mg magnesium) tablet (MagOx) 400 mg PO BID . 11/25/21 [History Last Taken Unknown] fluticasone furoate 27.5 mcg/actuation nasal spray,suspension 2 spray intranasal DAILY . 06/03/22 [History Last Taken Unknown] montelukast 10 mg tablet 10 mg PO QHS allergies 06/03/22 [History Last Taken Unknown] simvastatin 20 mg tablet 20 mg PO QHS 06/03/22 [History Last Taken Unknown] Allergy/AdvReac Type Severity Reaction Status Date / Time cat dander Allergy Unknown Unknown Verified 11/25/21 09:23 granisetron [From Kytril] Allergy Unknown Unknown Verified 11/25/21 09:23 mushroom Allergy Unknown Unknown Verified 11/25/21 09:23 Seasonal Allergies: Uncoded Allergy unknown Verified 11/25/21 09:23 birds Allergy Unknown Unknown Uncoded 11/25/21 09:23 SSRIs Allergy Unknown Unknown Uncoded 11/25/21 09:23 Family History (Updated 06/03/22 @ 15:[address] Patricia Delarosa MD) Father CAD (coronary artery disease) Heart disease Hypertension Mother Breast cancer Surgical History (Updated 06/03/22 @ 15:[address] Patricia Delarosa MD) History of colostomy History of exploratory laparotomy History of ileostomy History of nephrostomy History of total left knee replacement (TKR) History of ureter stent Social History (Updated 06/03/22 @ 15:[address] Patricia Delarosa MD) housing: longterm Smoking Status: Never smoker Electronic Cigarette Use: not used alcohol intake: never substance use type: does not use Lab / Micro Data Result Diagrams: 06/05/22 05:10 06/05/22 05:10
--- NOTE | 2022-06-05 10:20 | PCM.CONS.R ---
Assessment & Plan Assessment/Plan (1) TORI (acute kidney injury): (2) Hypokalemia: (3) Metabolic acidosis: HPI Consult Data Date of Consult: 06/05/22 HPI Narrative Reason for Consultation: Acute kidney injury HPI Narrative: The patient is a 61-year-old woman with past history of multiple sclerosis, mediastinal B-cell lymphoma, chronic hypotension on midodrine, hypothyroidism, anemia, and depression/anxiety. The patient also has a history of CKD stage G4 with prior serum creatinine of 1.8 to 1.9 mg/dL at baseline. She is a resident of [facility]. The patient initially presented to the hospital on 06/03/2022 with 3-day history of nausea and anorexia. There was no vomiting. She was found to be tachycardic and hypotensive on presentation. She is admitted to the hospital for treatment of UTI. The patient status post ileostomy although there has been no increasing ostomy output prior to admission. Nephrology is consulted to see the patient because of TORI on CKD. Serum creatinine on 06/04/2022 was 4.59 mg/dL. As mentioned above, baseline serum creatinine had been around 1.8 to 1.9 mg/dL. CT of A/P did not show any evidence of urinary tract obstruction. The patient was not on RAAS inhibitor or antihypertensive prior to admission. She was not on NSAIDs. 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 09/29/21 [History Last Taken Unknown] cyanocobalamin (vitamin B-12) 1,000 mcg capsule 1,000 mcg PO DAILY . 09/29/21 [History Last Taken Unknown] ferrous sulfate 325 mg (65 mg iron) tablet 325 mg PO DAILY . 09/29/21 [History Last Taken Unknown] fludrocortisone 0.1 mg tablet 0.1 mg PO DAILY . 09/29/21 [History Last Taken Unknown] folic acid 1 mg tablet 1 mg PO DAILY . 09/29/21 [History Last Taken Unknown] hydrocodone-acetaminophen 5-325mg 5mg-325mg 1 tab PO BID PRN . 09/29/21 [History Last Taken Unknown] levothyroxine 112 mcg capsule 112 mcg PO DAILY hypothyroidism 09/29/21 [History Last Taken Unknown] loperamide 2 mg capsule (Imodium A-D) 2 mg PO Q6H PRN . 09/29/21 [History Last Taken Unknown] midodrine 10 mg tablet 10 mg PO TID . 09/29/21 [History Last Taken Unknown] pantoprazole 40 mg tablet,delayed release 40 mg PO DAILY . 09/29/21 [History Last Taken Unknown] sodium chloride 0.9 % 100 ea continuous IV infusion .Q24 . 09/29/21 [History Last Taken Unknown] cholecalciferol (vitamin D3) 25 mcg (1,000 unit) capsule 25 mcg PO DAILY . 11/25/21 [History Last Taken Unknown] duloxetine 30 mg capsule,delayed release 60 mg PO BID . 11/25/21 [History Last Taken Unknown] magnesium oxide 400 mg (241.3 mg magnesium) tablet (MagOx) 400 mg PO BID . 11/25/21 [History Last Taken Unknown] fluticasone furoate 27.5 mcg/actuation nasal spray,suspension 2 spray intranasal DAILY . 06/03/22 [History Last Taken Unknown] montelukast 10 mg tablet 10 mg PO QHS allergies 06/03/22 [History Last Taken Unknown] simvastatin 20 mg tablet 20 mg PO QHS 06/03/22 [History Last Taken Unknown] Allergy/AdvReac Type Severity Reaction Status Date / Time cat dander Allergy Unknown Unknown Verified 11/25/21 09:23 granisetron [From Kytril] Allergy Unknown Unknown Verified 11/25/21 09:23 mushroom Allergy Unknown Unknown Verified 11/25/21 09:23 Seasonal Allergies: Uncoded Allergy unknown Verified 11/25/21 09:23 birds Allergy Unknown Unknown Uncoded 11/25/21 09:23 SSRIs Allergy Unknown Unknown Uncoded 11/25/21 09:23 Family History (Updated 06/03/22 @ 15:[address] Patricia Delarosa MD) Father CAD (coronary artery disease) Heart disease Hypertension Mother Breast cancer Surgical History (Updated 06/03/22 @ 15:[address] Patricia Delarosa MD) History of colostomy History of exploratory laparotomy History of ileostomy History of nephrostomy History of total left knee replacement (TKR) History of ureter stent Social History (Updated 06/03/22 @ 15:[address] Patricia Delarosa MD) housing: detention Smoking Status: Never smoker Electronic Cigarette Use: not used alcohol intake: never substance use type: does not use Lab / Micro Data Result Diagrams: 06/05/22 05:10 06/05/22 05:10 Labs: Laboratory Results - last 24 hr 06/05/22 05:10: WBC 7.1, RBC 3.78 L, Hgb 11.1 L, Hct 34.9 L, MCV 92.3, MCH 29.4, MCHC 31.8 L, RDW Std Deviation 51.8 H, RDW Coeff of Randal 15.3 H, Plt Count 248, MPV 9.6, Immature Gran % (Auto) 0.300, Neut % (Auto) 66.9, Lymph % (Auto) 16.8 L, [place] % (Auto) 12.2 H, Eos % (Auto) 3.5, Baso % (Auto) 0.3, Absolute Neuts (auto) 4.7, Absolute Lymphs (auto) 1.19, Nucleated RBC % 0 06/05/22 05:10: Sodium 137, Potassium 2.7 L*, Chloride 112 H, Carbon Dioxide 20.0 L, Anion Gap 5, BUN 42 H, Creatinine 3.62 H, Estim Creat Clear Calc 14.31, Est GFR (MDRD) Af Amer 16 L, Est GFR (MDRD) Non-Af 14 L, BUN/Creatinine Ratio 11.6, Glucose 101, Calcium 7.7 L
--- NOTE | 2022-06-05 11:55 | CASEMGMT ---
Social Work SW sent referral to [facility] can return as [facility]. Pt can return and would like to return skilled. Therapy notes sent for review. SW to update [facility] when pt is ready for DC. Plan: Return to [facility], skilled Medicare, pending clinically ready RUSH OswaldW
[2022-06-05] MEDS: Lactated Ringers 500 ML 75 ML IV (14:34)
[2022-06-05] MEDS: Atorvastatin Calcium 10 MG Tablet PO (21:39)
[2022-06-05] MEDS: Montelukast 10 MG Tablet PO (21:40)
[2022-06-06 03:30] VITALS: BP 118/74; PULSE 74; RESP 16; TEMP 36.6; O2SAT 96
[2022-06-06] MEDS: Levothyroxine 112 MCG Tablet PO (04:36)
[2022-06-06 05:15] LABS: Absolute Lymphocyte Count 1.91 X10^3/uL (0.83-4.51); Absolute Neutrophil Count 2.9 X10^3/uL (2.0-7.7); Basophil# 0.02 X10^3/uL; Basophil% 0.3 % (0-1); Eosinophil# 0.31 X10^3/uL; Eosinophils% 5.3 % (0-5); Hematocrit 33.9 % (37-47); Hemoglobin 10.9 g/dL (12.0-15.0); Lymphocyte # 1.91 X10^3/ul (0.83-4.51); Lymphocyte % 32.8 % (19-41); Mean Corp Hgb Conc 32.2 g/dL (32-36); Mean Corpuscular Hgb 29.9 pg (27.0-32.0); Mean Corpuscular Volume 92.9 fL (81-99); Mean Platelet Vol. 9.4 fl (6.2-12.0); NRBC Flagged by Analyzer 0 % (0-5); Neutrophil # 2.87 X10^3/uL (2.7-7.7); Neutrophil % 49.3 % (47-70); Platelet Count 255 K/mm3 (150-450); RBC Distribution Width CV 15.4 % (11.6-14.6); RBC Distribution Width SD 52.4 fl (35.1-43.9); Red Blood Count 3.65 M/mm3 (4.2-5.4); White Blood Count 5.8 K/mm3 (4.4-11.0)
[2022-06-06 06:00] VITALS: BMI 32.6
[2022-06-06 06:23] LABS: Anion Gap 2 (5-15); BUN 33 mg/dL (7-18); BUN/Creat Ratio 11.1 RATIO (10-20); Calcium,Total 8.3 mg/dL (8.5-10.1); Chloride 115 mmol/L (98-107); Creatinine, Serum 2.97 mg/dL (0.55-1.02); EST Glomerular Filtration Rate 17 mL/min (>60); Est Glom Filt Rate - Afr Amer 21 mL/min (>60); Estimated Creatinine Clearance 17.45 ml/min; Glucose 86 mg/dL (74-106); Magnesium 1.4 mg/dL (1.6-2.6); Potassium 3.2 mmol/L (3.5-5.1); Sodium Level 140 mmol/L (136-145)
[2022-06-06] MEDS: Potassium Chloride Oral Tablet 20 MEQ 60 MEQ PO (06:35)
[2022-06-06] MEDS: Magnesium Sulfate 4gm/100mL 4 GM/100 ML IV.SOLN. IV (06:52)
[2022-06-06 08:59] VITALS: BP 120/69; PULSE 73; RESP 16; TEMP 36.7; O2SAT 97
[2022-06-06] MEDS: Cyanocobalamin 500 MCG Tablet 1000 MCG PO (09:05)
[2022-06-06] MEDS: Cholecalciferol (VIT D3) 25 MCG TABLET (1,000 UNITS) PO (09:05)
[2022-06-06] MEDS: Magnesium Chloride 64 MG Delay Rel.Tablet 128 MG PO (09:05)
[2022-06-06] MEDS: Pantoprazole Sodium 40 MG Tablet PO (09:05)
[2022-06-06] MEDS: Folic Acid 1 MG Tablet PO (09:06)
[2022-06-06] MEDS: DULoxetine Hcl 30 MG Capsule 60 MG PO (09:06)
[2022-06-06] MEDS: Fludrocortisone Acetate 0.1 MG Tablet PO (09:06)
[2022-06-06] MEDS: Midodrine HCl 5 MG Tablet 10 MG PO ×2 (09:06→13:48)
[2022-06-06] MEDS: Ferrous Sulfate 325 MG Tablet PO (09:06)
[2022-06-06] MEDS: Heparin Injection (Vial) 5,000 UNIT/ML VIAL 5000 UNIT SC (09:06)
[2022-06-06] MEDS: Menthol/Lanolin/Calamine/Znox 113 GM Tube 1 APPLIC TOPICAL ×2 (09:07→13:50)
[2022-06-06] MEDS: HYDROcodone Bitartrate/Apap 5/325 Tablet PO (09:10)
--- NOTE | 2022-06-06 09:59 | PCM.PN.REN ---
Subjective Subjective Following for TORI on CKD Patient resting in bed. Denies any complaints. No overnight events. Reports good appetite. Objective Data Objective Data Vital Signs: Vital Signs Temp Pulse Resp BP Pulse Ox O2 Del Method 98.0 F 73 16 120/69 97 Room Air 06/06/22 08:59 06/06/22 08:59 06/06/22 08:59 06/06/22 08:59 06/06/22 08:59 06/06/22 08:59 Oxygen Delivery Method Room Air Weight: 89.1 kg Body Mass Index (BMI) 32.6 Intake & Output: Intake and Output for Last 24 Hours 06/04/22 06/05/22 06/06/22 23:59 23:59 23:59 Intake Total 3175 / 3175 3180.00 / 3180.00 50 / 50 Output Total 1600 / 2400 2050 / 2250 600 / 600 Balance 1575 / 775 1130.00 / 930.00 -550 / -550 Lab / Micro Data Result Diagrams: 06/06/22 04:14 06/06/22 04:14 Labs: Laboratory Results - last 24 hr 06/06/22 04:14: WBC 5.8, RBC 3.65 L, Hgb 10.9 L, Hct 33.9 L, MCV 92.9, MCH 29.9, MCHC 32.2, RDW Std Deviation 52.4 H, RDW Coeff of Randal 15.4 H, Plt Count 255, MPV 9.4, Immature Gran % (Auto) 0.300, Neut % (Auto) 49.3, Lymph % (Auto) 32.8, [place] % (Auto) 12.0 H, Eos % (Auto) 5.3 H, Baso % (Auto) 0.3, Absolute Neuts (auto) 2.9, Absolute Lymphs (auto) 1.91, Nucleated RBC % 0 06/06/22 04:14: Sodium 140, Potassium 3.2 L, Chloride 115 H, Carbon Dioxide 23.0, Anion Gap 2 L, BUN 33 H, Creatinine 2.97 H, Estim Creat Clear Calc 17.45, Est GFR (MDRD) Af Amer 21 L, Est GFR (MDRD) Non-Af 17 L, BUN/Creatinine Ratio 11.1, Glucose 86, Calcium 8.3 L, Magnesium 1.4 L Physical Exam Narrative Alert and oriented x3, no apparent distress S1, S2, RRR Lung sounds clear anteriorly and posteriorly.? No wheezes, rhonchi or rales noted Abdomen soft, nontender No edema Middleton catheter with clear yellow urine in tubing Assessment & Plan Assessment/Plan (1) TORI (acute kidney injury): (2) Metabolic acidosis: (3) Hypokalemia: (4) UTI (urinary tract infection): PLAN: Plan This is a pleasant 61-year-old female with past medical history significant for multiple sclerosis, history of large B-cell lymphoma, history of pelvic mass with diagnostic laparoscopy followed by open loop transverse colostomy and loop ileostomy creation 2017 who was transferred from outside ER for TORI, complicated UTI, hypotension. Nephrology consulted for acute kidney injury. - Nonoliguric, hypovolemic TORI on possible CKD (per documentation SCr 1.82mg/dL 04/03/2022). TORI likely secondary to significant volume depletion with nausea, vomiting and diarrhea, hypotension and UTI. Previous hospital CT A/P: atrophic left kidney with no evidence of hydronephrosis (R kidney), ileostomy and colostomy appear appropriate, no bowel obstruction, evidence IVCF in place. Urine sodium yesterday 12. 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 In [place] [facility] creatinine 5.38mg/dL -->SCr 4.59 mg/dL (06/04)--> SCr 3.62 mg/dL--> today SCr 2.97mg/dL. Patient was initially on bicarb gtt, stopped yesterday and started on LR. Due to lack of IV access and interaction with antibiotic patient has been receiving LR 500ml every 6hr. Can stop IVF altogether. Bicarb has improved to 23 today. Likely metabolic acidosis from TORI and diarrhea. Potassium low but has improved, replacement has been given today. Mag 1.4 today, currently on mag supplements and replacement ordered. - Blood pressures have improved, continue on midodrine and florinef (patient states has been taking these medications for some time now for history of hypotension). - On IV antibiotics, Zosyn - discussed with patient would recommend for patient to follow with Nephrology. Will arrange for hospital follow-up. - Nephrology plan discussed with Dr. Schmitz.
--- NOTE | 2022-06-06 11:33 | CASEMGMT ---
HERMILA spoke with [facility] at [facility]. HERMILA let [facility] know patient will likely be discharged today. Steffi Merrill SETTLEMENT AGENT MERARY
--- NOTE | 2022-06-06 11:55 | TREXTCAR_ITS ---
Diet Diet Order/Speech Therapy: 06/03/22 15:44 Diet: Regular - General Food consistency:: Regular Liquid Consistency:: Regular/Thin Routine Orders/Code Status Suppository Type: Dulcolax 10mg Suppository Frequency: Daily PRN Change Middleton Catheter: Has catheter in place Routine Lab Work: CBC (2 days) and BMP (2 days) Code Status: DNRCC-A Therapies Physical Therapy: Eval and Treat Occupational Therapy: Eval and Treat Speech Therapy: Eval and Treat Problem/Diagnosis (1) TORI (acute kidney injury): Status: Acute Code(s): N17.9 - Acute kidney failure, unspecified (2) Metabolic acidosis: Status: Acute Code(s): E87.20 - Acidosis, unspecified (3) Hypokalemia: Status: Acute Code(s): E87.6 - Hypokalemia (4) UTI (urinary tract infection): Status: Acute Code(s): N39.0 - Urinary tract infection, site not specified Plan 61-year-old female history of Allergic rhinitis, Chronic anemia/AOCD/Fe deficiency anemia, Multiple sclerosis with near bedbound wheelchair status with chronic right foot drop and chronic neuropathic pain with chronic also ataxia following with Byron Flower previously in neurology, Mediastinal (Thymic) Large B-cell Lymphoma, Depression and Anxiety, GERD, Hypothyroidism, Hx Pelvic mass (aggressive large B cell lymphoma) w/ diagnostic laparoscopy followed by open loop transverse colostomy and loop ileostomy creation 2017 complicated by SBO requiring ex lap with REKHA, CKD stage IIIb (04/03/2022 BUN/creat 29/1.82) who presented to [facility] 06/03 as a transfer from [facility] ED for ongoing nausea for 3 days at her nursing facility prompting ED evaluation. In the ED she was noted to have BP of 80/60 with pulse of 125 which significantly improved with hydration. CT showed atrophic left kidney with no evidence of hydronephrosis, right kidney ileostomy as well as colostomy appeared appropriate, no bowel obstruction. She was noted to have a creatinine of 5.38 up from her baseline of roughly 1.8 to. UA concerning for UTI and cultures had been obtained at outlying facility. Nephrology consulted given the severity of her TORI and she was placed on a bicarb drip due to an acidosis. She was felt to have an acute complicated UTI and on Zosyn. She did improve significantly on Zosyn and with hydration. Bicarb drip was changed to IV fluids and her p.o. intake improved. Discussed with nephrology on day of discharge and she was feeling well and given her improvement she is cleared for discharge with plans to schedule outpatient nephrology follow-up. Of note she did have low blood pressure and was on fludrocortisone and midodrine but this is a chronic problem for her and these were continued. Call out to facility to inquire about culture results and they reported all cultures blood and urine no growth to date. Discharge instructions as followed: DISCHARGE INSTRUCTIONS PLEASE READ -You were diagnosed with a urinary tract infection and were treated with antibiotics, you will be discharged on 5 more days of Augmentin 500 mg 3 times daily with first dose this evening -Would recommend lab work (BMP and CBC) to check your potassium, creatinine, hemoglobin in 2-3 days through your outpatient physician. Please call their office upon discharge to obtain order for lab work order -Given your persistently low potassium we will send you out on a low-dose of potassium supplementation, will be important that you have your creatinine function and potassium checked in 2 to 3 days to verify need for any changes. -Please call nephrology upon discharge to verify or hospital follow-up appointment -Please call your primary care provider's office upon discharge to schedule a hospital follow up within 1 week. -For any concerning signs or symptoms please call 911 or proceed to the nearest emergency department #Acute complicated UTI #TORI on CKDIIIb #hypokalemia #Hypotension, appears to be chronic #hx MS #Chronic left foot drop and chronic neuropathic pain.? #History large B-cell lymphoma: Allergies/Procedures Done in Hospital Allergies cat dander Allergy (Unknown, Verified 11/25/21 09:23) Unknown granisetron [From Kytril] Allergy (Unknown, Verified 11/25/21 09:23) Unknown mushroom Allergy (Unknown, Verified 11/25/21 09:23) Unknown Seasonal Allergies: Uncoded Allergy (Verified 11/25/21 09:23) unknown birds Allergy (Unknown, Uncoded 11/25/21 09:23) Unknown SSRIs Allergy (Unknown, Uncoded 11/25/21 09:23) Unknown Type of Care/Length of Stay Estimated LOS: Convalescent Care Less Than 30 days Type of Care Needed: Skilled Rehab Potential: Fair Prognosis: Fair Additional Orders/Day of Discharge Day of Discharge: 06/06/22 Dietary and Speech Recommendations Dietitian Recommendations/Changes: Continue regular diet as tolerated. Encouraged pt call RD as needed. ONS not indicated at this time. Discharge Plan Admission Admit Date/Time: 06/03/22 16:46 Primary Reason for Your Visit: Nausea and worsening kidney function Attending Provider: Viry Schmitz Primary Care Provider: Remedios March Consulting Providers: Patricia Delarosa ; Magnolia Jorge ; Justina Jenkins Instructions Patient Instructions: Acute Kidney Failure Dc Additional Instructions / Restrictions: DISCHARGE INSTRUCTIONS PLEASE READ -You were diagnosed with a urinary tract infection and were treated with antibiotics, you will be discharged on 5 more days of Augmentin 500 mg 3 times daily with first dose this evening -Would recommend lab work (BMP and CBC) to check your potassium, creatinine, hemoglobin in 2-3 days through your outpatient physician. Please call their office upon discharge to obtain order for lab work order -Given your persistently low potassium we will send you out on a low-dose of potassium supplementation, will be important that you have your creatinine function and potassium checked in 2 to 3 days to verify need for any changes. -Please call nephrology upon discharge to verify or hospital follow-up appointment -Please call your primary care provider's office upon discharge to schedule a hospital follow up within 1 week. -For any concerning signs or symptoms please call 911 or proceed to the nearest emergency department Discharge Orders/Prescriptions Prescriptions: New amoxicillin-pot clavulanate [Augmentin] 500-125 mg tablet 1 tab PO Q8H 5 Days Qty: 16 0RF Continued acetaminophen 325 mg capsule 650 mg PO Q4H PRN (Reason: .) cyanocobalamin (vitamin B-12) 1,000 mcg capsule 1,000 mcg PO DAILY ferrous sulfate 325 mg (65 mg iron) tablet 325 mg PO DAILY fludrocortisone 0.1 mg tablet 0.1 mg PO DAILY Label Comments: Per pt report does not take folic acid 1 mg tablet 1 mg PO DAILY hydrocodone-acetaminophen 5-325 mg tablet 1 tab PO BID PRN (Reason: .) loperamide [Imodium A-D] 2 mg capsule 2 mg PO Q6H PRN (Reason: .) Rx Instructions: Give 1 tablet PO PRN if more than 1000 out of ileostomy levothyroxine 112 mcg capsule 112 mcg PO DAILY midodrine 10 mg tablet 10 mg PO TID Rx Instructions: do not give last dose of day after 6PM or within 4 hrs of bedtime pantoprazole 40 mg tablet,delayed release (DR/EC) 40 mg PO DAILY sodium chloride 0.9 % Parenteral Solution 100 ea continuous IV infusion .Q24 duloxetine 30 mg capsule,delayed release(DR/EC) 60 mg PO BID magnesium oxide [MagOx] 400 mg (241.3 mg magnesium) tablet 400 mg PO BID cholecalciferol (vitamin D3) 25 mcg (1,000 unit) capsule 25 mcg PO DAILY simvastatin 20 mg Tablet 20 mg PO QHS montelukast 10 mg Tablet 10 mg PO QHS fluticasone furoate 27.5 mcg/actuation [place],Suspension 2 spray INTRANASAL DAILY Label Comments: per pt report does not take Rx Instructions: into each nostril Referrals / Follow Up: Remedios March MD [Primary Care Provider] - Within 1 Week Magnolia Jorge MD [Med Staff - Consulting] - See Referral Note (Please follow-up with nephrology upon discharge, please call the office to inquire about your hospital follow-up appointment if you do not hear from the office within 24 to 48 hours) Disposition Disposition (needs filled in before D/C Order can be placed): Assisted Facility
--- NOTE | 2022-06-06 12:11 | PCM.DC.SUM ---
Providers Date of Admission: 06/03/22 Date of Discharge: 06/06/22 Primary Care Physician: Dr. Remedios March MD Consultations 06/04/22 07:28 Consult: Nephrology Routine Consulting Provider: Magnolia Jorge Reason for Consult: TORI on CKD, non anion gap metabolic acidosis EMERGENT Consult: No MD Notified: Yes Date Notified: 06/04/22 Time Notified: 07:28 Method of Notification: Text Reason For Visit: TORI, COMPLICATED UTI, ACUTE ON CHRONIC HYPOTENSION Diagnosis Discharge Diagnosis (1) TORI (acute kidney injury): Status: Acute Code(s): N17.9 - Acute kidney failure, unspecified (2) Metabolic acidosis: Status: Acute Code(s): E87.20 - Acidosis, unspecified (3) Hypokalemia: Status: Acute Code(s): E87.6 - Hypokalemia (4) UTI (urinary tract infection): Status: Acute Code(s): N39.0 - Urinary tract infection, site not specified Plan #Acute complicated UTI #TORI on CKDIIIb #hypokalemia #Hypotension, appears to be chronic #hx MS #Chronic left foot drop and chronic neuropathic pain.? #History large B-cell lymphoma: Medications at Discharge Home Medications acetaminophen 325 mg capsule 650 mg PO Q4H PRN . 09/29/21 cyanocobalamin (vitamin B-12) 1,000 mcg capsule 1,000 mcg PO DAILY . 09/29/21 ferrous sulfate 325 mg (65 mg iron) tablet 325 mg PO DAILY . 09/29/21 fludrocortisone 0.1 mg tablet 0.1 mg PO DAILY . 09/29/21 folic acid 1 mg tablet 1 mg PO DAILY . 09/29/21 hydrocodone-acetaminophen 5-325mg 5mg-325mg 1 tab PO BID PRN . 09/29/21 levothyroxine 112 mcg capsule 112 mcg PO DAILY hypothyroidism 09/29/21 loperamide 2 mg capsule (Imodium A-D) 2 mg PO Q6H PRN . 09/29/21 midodrine 10 mg tablet 10 mg PO TID . 09/29/21 pantoprazole 40 mg tablet,delayed release 40 mg PO DAILY . 09/29/21 sodium chloride 0.9 % 100 ea continuous IV infusion .Q24 . 09/29/21 cholecalciferol (vitamin D3) 25 mcg (1,000 unit) capsule 25 mcg PO DAILY . 11/25/21 duloxetine 30 mg capsule,delayed release 60 mg PO BID . 11/25/21 magnesium oxide 400 mg (241.3 mg magnesium) tablet (MagOx) 400 mg PO BID . 11/25/21 fluticasone furoate 27.5 mcg/actuation nasal spray,suspension 2 spray intranasal DAILY . 06/03/22 montelukast 10 mg tablet 10 mg PO QHS allergies 06/03/22 simvastatin 20 mg tablet 20 mg PO QHS 06/03/22 amoxicillin 500 mg-potassium clavulanate 125 mg tablet (Augmentin) 1 tab PO Q8H 5 days #16 tabs 06/06/22 potassium chloride 20 mEq tablet,extended release 20 meq PO DAILY #14 tabs 06/06/22 Hospital Course Summary of Care Provided Minutes Spent on Discharge: 35 Hospital Course: 61-year-old female history of Allergic rhinitis, Chronic anemia/AOCD/Fe deficiency anemia, Multiple sclerosis with near bedbound wheelchair status with chronic right foot drop and chronic neuropathic pain with chronic also ataxia following with Byron Flower previously in neurology, Mediastinal (Thymic) Large B-cell Lymphoma, Depression and Anxiety, GERD, Hypothyroidism, Hx Pelvic mass (aggressive large B cell lymphoma) w/ diagnostic laparoscopy followed by open loop transverse colostomy and loop ileostomy creation 2017 complicated by SBO requiring ex lap with REKHA, CKD stage IIIb (04/03/2022 BUN/creat 29/1.82) who presented to [facility] 06/03 as a transfer from [facility] ED for ongoing nausea for 3 days at her nursing facility prompting ED evaluation. In the ED she was noted to have BP of 80/60 with pulse of 125 which significantly improved with hydration. CT showed atrophic left kidney with no evidence of hydronephrosis, right kidney ileostomy as well as colostomy appeared appropriate, no bowel obstruction. She was noted to have a creatinine of 5.38 up from her baseline of roughly 1.8 to. UA concerning for UTI and cultures had been obtained at outlying facility. Nephrology consulted given the severity of her TORI and she was placed on a bicarb drip due to an acidosis. She was felt to have an acute complicated UTI and on Zosyn. She did improve significantly on Zosyn and with hydration. Bicarb drip was changed to IV fluids and her p.o. intake improved. Discussed with nephrology on day of discharge and she was feeling well and given her improvement she is cleared for discharge with plans to schedule outpatient nephrology follow-up. Of note she did have low blood pressure and was on fludrocortisone and midodrine but this is a chronic problem for her and these were continued. Call out to facility to inquire about culture results and they reported all cultures blood and urine no growth to date. Discharge instructions as followed: DISCHARGE INSTRUCTIONS PLEASE READ -You were diagnosed with a urinary tract infection and were treated with antibiotics, you will be discharged on 5 more days of Augmentin 500 mg 3 times daily with first dose this evening -Would recommend lab work (BMP and CBC) to check your potassium, creatinine, hemoglobin in 2-3 days through your outpatient physician. Please call their office upon discharge to obtain order for lab work order -Given your persistently low potassium we will send you out on a low-dose of potassium supplementation, will be important that you have your creatinine function and potassium checked in 2 to 3 days to verify need for any changes. -Please call nephrology upon discharge to verify or hospital follow-up appointment -Please call your primary care provider's office upon discharge to schedule a hospital follow up within 1 week. -For any concerning signs or symptoms please call 911 or proceed to the nearest emergency department Physical Exam Narrative General: Alert, oriented, no apparent distress HEENT: Atraumatic, normocephalic Eyes: Anicteric, normal conjunctiva, extraocular movements grossly intact Neck: Supple Respiratory: Clear to auscultation bilaterally, normal respiratory effort Cardiovascular: Regular rate and rhythm GI: Soft, nontender, nondistended Extremities: No edema Musculoskeletal: Moving all extremities Neuro: No overt focal neurological deficits Skin: No rashes appreciated Psych: Cooperative Weight / BMI Weight Weight: 89.1 kg Body Mass Index (BMI) 32.6 ABG / Lab / Microbiology Data Result Diagrams: 06/06/22 04:14 06/06/22 04:14 Laboratory: Laboratory Results - last 24 hr 06/06/22 04:14: WBC 5.8, RBC 3.65 L, Hgb 10.9 L, Hct 33.9 L, MCV 92.9, MCH 29.9, MCHC 32.2, RDW Std Deviation 52.4 H, RDW Coeff of Randal 15.4 H, Plt Count 255, MPV 9.4, Immature Gran % (Auto) 0.300, Neut % (Auto) 49.3, Lymph % (Auto) 32.8, [place] % (Auto) 12.0 H, Eos % (Auto) 5.3 H, Baso % (Auto) 0.3, Absolute Neuts (auto) 2.9, Absolute Lymphs (auto) 1.91, Nucleated RBC % 0 06/06/22 04:14: Sodium 140, Potassium 3.2 L, Chloride 115 H, Carbon Dioxide 23.0, Anion Gap 2 L, BUN 33 H, Creatinine 2.97 H, Estim Creat Clear Calc 17.45, Est GFR (MDRD) Af Amer 21 L, Est GFR (MDRD) Non-Af 17 L, BUN/Creatinine Ratio 11.1, Glucose 86, Calcium 8.3 L, Magnesium 1.4 L D/C Instructions Discharge Diet: No restrictions Discharge Activity: Return to Normal Activity Meaningful Use Info Meaningful Use Diagnoses (Choose all that apply): None applicable Discharge Plan Admission Admit Date/Time: 06/03/22 16:46 Primary Reason for Your Visit: Nausea and worsening kidney function Attending Provider: Viry Schmitz Primary Care Provider: Remedios March Consulting Providers: Patricia Delarosa ; Magnolia Jorge ; Justina Jenkins Instructions Patient Instructions: Acute Kidney Failure Dc Additional Instructions / Restrictions: DISCHARGE INSTRUCTIONS PLEASE READ -You were diagnosed with a urinary tract infection and were treated with antibiotics, you will be discharged on 5 more days of Augmentin 500 mg 3 times daily with first dose this evening -Would recommend lab work (BMP and CBC) to check your potassium, creatinine, hemoglobin in 2-3 days through your outpatient physician. Please call their office upon discharge to obtain order for lab work order -Given your persistently low potassium we will discharge you on a low-dose of potassium supplementation, will be important that you have your creatinine function and potassium checked in 2 to 3 days to verify need for any changes. -Please call nephrology upon discharge to verify or hospital follow-up appointment -Please call your primary care provider's office upon discharge to schedule a hospital follow up within 1 week. -For any concerning signs or symptoms please call 911 or proceed to the nearest emergency department Discharge Orders/Prescriptions Prescriptions: New amoxicillin-pot clavulanate [Augmentin] 500-125 mg tablet 1 tab PO Q8H 5 Days Qty: 16 0RF potassium chloride 20 mEq tablet extended release 20 meq PO DAILY Qty: 14 0RF Continued acetaminophen 325 mg capsule 650 mg PO Q4H PRN (Reason: .) cyanocobalamin (vitamin B-12) 1,000 mcg capsule 1,000 mcg PO DAILY ferrous sulfate 325 mg (65 mg iron) tablet 325 mg PO DAILY fludrocortisone 0.1 mg tablet 0.1 mg PO DAILY Label Comments: Per pt report does not take folic acid 1 mg tablet 1 mg PO DAILY hydrocodone-acetaminophen 5-325 mg tablet 1 tab PO BID PRN (Reason: .) loperamide [Imodium A-D] 2 mg capsule 2 mg PO Q6H PRN (Reason: .) Rx Instructions: Give 1 tablet PO PRN if more than 1000 out of ileostomy levothyroxine 112 mcg capsule 112 mcg PO DAILY midodrine 10 mg tablet 10 mg PO TID Rx Instructions: do not give last dose of day after 6PM or within 4 hrs of bedtime pantoprazole 40 mg tablet,delayed release (DR/EC) 40 mg PO DAILY sodium chloride 0.9 % Parenteral Solution 100 ea continuous IV infusion .Q24 duloxetine 30 mg capsule,delayed release(DR/EC) 60 mg PO BID magnesium oxide [MagOx] 400 mg (241.3 mg magnesium) tablet 400 mg PO BID cholecalciferol (vitamin D3) 25 mcg (1,000 unit) capsule 25 mcg PO DAILY simvastatin 20 mg Tablet 20 mg PO QHS montelukast 10 mg Tablet 10 mg PO QHS fluticasone furoate 27.5 mcg/actuation [place],Suspension 2 spray INTRANASAL DAILY Label Comments: per pt report does not take Rx Instructions: into each nostril Referrals / Follow Up: Remedios March MD [Primary Care Provider] - Within 1 Week Magnolia Jorge MD [Med Staff - Consulting] - See Referral Note (Please follow-up with nephrology upon discharge, please call the office to inquire about your hospital follow-up appointment if you do not hear from the office within 24 to 48 hours) Disposition Disposition (needs filled in before D/C Order can be placed): Group Home Facility Charges/Coding Visit Charges Inpatient E&M: 86921 Disch Hosp >30min
[2022-06-06 13:46] VITALS: BP 124/73; PULSE 80; RESP 16; TEMP 36.7; O2SAT 97
--- NOTE | 2022-06-06 14:25 | CASEMGMT ---
SW sent orders and COVID test to [facility] via [employer]. SW called Physicians and arranged for patient to get picked up at 330 via cot. SW notified [facility] via [employer] and SW also left a voice mail for [facility]. SW notified storage battery charger, RN, and patient. Plan: d/c back to [facility] under skilled level of care. Physicians will transport patient via cot. Steffi REAGAN
--- NOTE | 2022-06-06 15:52 | NURSING ---
Report called to SUSAN Mazariegos, at [facility], at [phone].
== END 2022-06-06 15:38 | disposition skilled nursing facility (03) | DRG 699 ==
PROVIDERS: Student in an Organized Health Care Education/Training Program; Admitting Provider Family Medicine; PCP Internal Medicine; Visit Provider Internal Medicine
DX: T83.511A Infection and inflammatory reaction due to indwelling urethral catheter, initial encounter (principal); N17.9 Acute kidney failure, unspecified; E87.20 Acidosis, unspecified; D63.8 Anemia in other chronic diseases classified elsewhere; E86.9 Volume depletion, unspecified; I95.89 Other hypotension; G35 Multiple sclerosis; N18.32 Chronic kidney disease, stage 3b; Z93.2 Ileostomy status; D50.9 Iron deficiency anemia, unspecified; E03.9 Hypothyroidism, unspecified; K21.9 Gastro-esophageal reflux disease without esophagitis; E87.6 Hypokalemia; G62.9 Polyneuropathy, unspecified; E78.5 Hyperlipidemia, unspecified; J30.9 Allergic rhinitis, unspecified; F41.9 Anxiety disorder, unspecified; M21.372 Foot drop, left foot; N26.1 Atrophy of kidney (terminal); G89.29 Other chronic pain; F32.A Depression, unspecified; Z20.822 Contact with and (suspected) exposure to COVID-19; Z79.52 Long term (current) use of systemic steroids; Z79.890 Hormone replacement therapy; Z79.899 Other long term (current) drug therapy; Z85.72 Personal history of non-Hodgkin lymphomas
CPT/HCPCS: 36415; 80048; 80053; 82570; 83735; 84100; 84300; 85025; 87426; 94668; 97110; 97163; 97165; 97530; 97535; 99252; J7030; J7120; G0463